=== PATIENT | female | born 1965 | race Caucasian/White ===

== ENCOUNTER 2019-06-08 20:04 | Emergency (ER) | payer OTHER ==
[2019-06-08] MEDS ORDERED: KETOROLAC TROMETHAMINE 60 MG/2 ML SDV IM ONE (20:53)
[2019-06-08] MEDS ORDERED: DEXAMETHASONE SOD PHOS INJ 10 MG/1 ML VIAL IM ONE (20:53)
--- NOTE | 2019-06-08 20:57 | ER Document Report ---
ED Medical Screen (RME) - General Chief Complaint: Back Pain Stated Complaint: RIGHT SIDED FLANK PAIN Time Seen by Provider: 06/08/19 20:46 Notes: Patient is a 53-year-old female who presents emergency department with a chief complaints of low back pain. Patient states that she fell on March 24. Since then she did not seek medical care. Today she went to go use the restroom and when she got up she felt her back go out. Patient states that she was seeing a chiropractor. She had been taking ibuprofen at home, but stopped taking it a few days ago. Exam: Tenderness and tightness to bilateral lower back. Patient will receive a dose of Decadron and Toradol to help with pain relief. I have greeted and performed a rapid initial assessment of this patient. A comprehensive ED assessment and evaluation of the patient, analysis of test results and completion of medical decision making process will be conducted by an additional ED providers. Past Medical History - Social History Frequency of alcohol use: None Drug Abuse: None Physical Exam - Vital signs Vitals: Temp Pulse Resp BP Pulse Ox 98.8 F 69 18 133/73 H 100 06/08/19 20:23 06/08/19 20:23 06/08/19 20:23 06/08/19 20:23 06/08/19 20:23 Course - Vital Signs Vital signs: Temp Pulse Resp BP Pulse Ox 98.8 F 69 18 133/73 H 100 06/08/19 20:23 06/08/19 20:23 06/08/19 20:23 06/08/19 20:23 06/08/19 20:23
[2019-06-08 21:55] LABS: APPEARANCE,URINE CLEAR; BILIRUBIN,URINE NEGATIVE (NEGATIVE); COLOR,URINE YELLOW; GLUCOSE, URINE NEGATIVE (NEGATIVE); KETONES,URINE NEGATIVE (NEGATIVE); LEUKOCYTE ESTERASE,URINE NEGATIVE (NEGATIVE); NITRITE,URINE NEGATIVE (NEGATIVE); PROTEIN,URINE NEGATIVE (NEGATIVE); URINE SPECIFIC GRAVITY 1.017; UROBILINOGEN,URINE NEGATIVE mg/dL (<2.0)
[2019-06-08] MEDS ORDERED: ONDANSETRON HCL INJ/PF 4 MG/2 ML SDV IV ONE (22:42)
[2019-06-08] MEDS ORDERED: NORMAL SALINE 1000 ML 1,000 ML IV ONE (22:42)
[2019-06-08] MEDS ORDERED: MORPHINE SULFATE 10 MG/ML INJ IV ONE (22:43)
[2019-06-08 23:19] LABS: ABSOLUTE BASOPHILS # (AUTO) 0.1 10^3/uL (0.0-0.2); ABSOLUTE LYMPHOCYTES (AUTO) 1.6 10^3/uL (0.5-4.7); ABSOLUTE MONOCYTES (AUTO) 0.5 10^3/uL (0.1-1.4); ABSOLUTE NEUT (AUTO) 7.4 10^3/uL (1.7-8.2); BASOPHILS % (AUTO) 0.7 % (0-2); EOSINOPHILS % (AUTO) 0.3 % (0-6); HEMATOCRIT 37.7 % (36.0-47.0); HEMOGLOBIN 12.9 g/dL (12.0-15.5); LYMPHOCYTES % (AUTO) 16.7 % (13-45); MEAN CORPUSCULAR HEMOGLOBIN 29.3 pg (27.0-33.4); MEAN CORPUSCULAR HGB CONC 34.3 g/dL (32.0-36.0); MEAN CORPUSCULAR VOLUME 85 fl (80-97); MONOCYTES % (AUTO) 4.7 % (3-13); PLATELET COUNT 313 10^3/uL (150-450); RED BLOOD COUNT 4.42 10^6/uL (3.72-5.28); RED CELL DISTRIBUTION WIDTH 13.1 % (11.5-14.0); SEGMENTED NEUTROPHILS % (AUTO) 77.6 % (42-78); TOTAL CELLS COUNTED % (AUTO) 100 %; WHITE BLOOD COUNT 9.5 10^3/uL (4.0-10.5)
[2019-06-08 23:31] LABS: ALBUMIN 4.3 g/dL (3.5-5.0); ALKALINE PHOSPHATASE 95 U/L (38-126); ANION GAP 9 (5-19); ASPARTATE AMINO TRANSFERASE 26 U/L (14-36); BILIRUBIN,DIRECT 0.1 mg/dL (0.0-0.4); BILIRUBIN,TOTAL 0.4 mg/dL (0.2-1.3); BLOOD UREA NITROGEN 26 mg/dL (7-20); CALCIUM 10.1 mg/dL (8.4-10.2); CARBON DIOXIDE 30 mmol/L (22-30); CHLORIDE 100 mmol/L (98-107); GLUCOSE 96 mg/dL (75-110); POTASSIUM 4.1 mmol/L (3.6-5.0); TOTAL PROTEIN 7.2 g/dL (6.3-8.2)
--- NOTE | 2019-06-08 23:42 | RADIOLOGY REPORT (SQ) ---
EXAM DESCRIPTION: CLINICAL HISTORY: 53 years Female right flank pain COMPARISON: None. TECHNIQUE: Contiguous axial images obtained through the abdomen and pelvis without IV contrast. Reformatted images obtained. This exam was performed according to our department optimization program which includes automated exposure control, adjustment of the mA and/or kv according to patient size and/or use of iterative reconstruction technique. FINDINGS: The lung bases are clear. The liver appears unremarkable. The spleen and pancreas appear unremarkable. No adrenal masses. The kidneys appear unremarkable. No hydronephrosis or definite ureteral calculi. The gallbladder is contracted. No aneurysmal dilatation of the aorta. No bowel obstruction. Diverticulosis without diverticulitis. Unremarkable appendix. No free fluid. Nonspecific subcutaneous density over the left gluteal region. In the setting of trauma this could represent an area of contusion. Recommend clinical correlation IMPRESSION: No evidence of acute process to explain the patient's right flank pain Area of soft tissue stranding over the left buttock which could reflect contusion. Recommend clinical correlation
--- NOTE | 2019-06-09 00:08 | ER Document Report ---
ED General - General Chief Complaint: Back Pain Stated Complaint: RIGHT SIDED FLANK PAIN Time Seen by Provider: 06/08/19 20:46 Primary Care Provider: JONE KATZ MD [ASSOCIATE] - Follow up in 3-5 days Notes: Patient is a 53-year-old female that presents to the emergency department for chief complaint of right low back pain. Patient states that shortly prior to ED arrival she was standing up from going to the bathroom and felt a sharp pain in her right side and right back. She states she had an injury to her back in February of this year and on and off its been bothering her but not to this extent. She denies having any numbness, weakness or tingling in either of her lower extremities. Denies any bowel or bladder incontinence, denies any urinary retention, saddle anesthesias or paresthesias. Denies prior history of kidney stones she has not noticed any urinary symptoms such as dysuria hematuria eithe r. She currently rates her pain as a 9 out of 10 particular worse with changes in position. Describes as an aching constant sensation. Past Medical History: Denies chronic medical conditions Past Surgical History: Denies recent or pertinent surgical history Social History: Denies current tobacco, alcohol or drug use. Family History: Reviewed and noncontributory for presenting illness Allergies: Reviewed, see documented allergy list. REVIEW OF SYSTEMS: Other than noted above, the 12 point review of systems was reviewed with the patient and were negative, all pertinent findings are included in the HPI. PHYSICAL EXAMINATION: Vital signs reviewed, nursing noted reviewed. GENERAL: Well-appearing, well-nourished and in no acute distress. HEAD: Atraumatic, normocephalic. EYES: Eyes appear normal, extraocular movements intact, sclera anicteric, conjunctiva are normal. ENT: nares patent, oropharynx clear without exudates. Moist mucous membranes. NECK: Normal range of motion, supple without lymphadenopathy LUNGS: Breath sounds clear to auscultation bilaterally and equal. No wheezes rales or rhonchi. HEART: Regular rate and rhythm without murmurs ABDOMEN: Soft, nontender, normoactive bowel sounds. No rebound, guarding, or rigidity. No masses appreciated. EXTREMITIES: Nontender, good range of motion, no pitting or edema. Back: There is right CVA tenderness to palpation, and lower paraspinal tenderness as well, pain with range of motion of the lumbar spine. Negative straight leg raising. NEUROLOGICAL: No focal neurological deficits. Moves all extremities spontaneo usly Motor and sensory grossly intact on exam. Patient's muscular motor strength is +5/5 distally in all extremities, particularly with plantarflexion, dorsiflexion and extension of the hallucis longus tendon. PSYCH: Normal mood, normal affect. SKIN: Warm, Dry, normal turgor, no rashes or lesions noted on exposed skin - Related Data Allergies/Adverse Reactions: No Known Allergies Allergy (Unverified 06/08/19 22:13) Past Medical History - Social History Smoking Status: Never Smoker Frequency of alcohol use: None Drug Abuse: None Family History: Reviewed & Not Pertinent Patient has suicidal ideation: No Patient has homicidal ideation: No - Past Medical History Cardiac Medical History: Reports: Hx Hypertension Past Surgical History: Reports: Hx Section - x 2 Physical Exam - Vital signs Vitals: Temp Pulse Resp BP Pulse Ox 98.8 F 69 18 133/73 H 100 06/08/19 20:23 06/08/19 20:23 06/08/19 20:23 06/08/19 20:23 06/08/19 20:23 Course - Re-evaluation Re-evalutation: Patient seen and examined vital signs reviewed. Laboratory data and/or imaging were ordered as appropriate for the patient's presenting symptoms and complaint, with consideration of any critical or life threatening conditions that may be associated with their obtained history and exam as noted above. Patient was treated with IV fluids, morphine and Zofran and given Toradol initially Results were reviewed when available and demonstrated negative CT imaging for kidney stone, as the patient's presentation did demonstrate some hematuria in her UA, and had severe flank pain, however with negative CT, unremarkable blood work, this most likely is muscular skeletal pain without renal colic is possible from recently passed stone. The patient was re-evaluated and was improved Evaluation was most consistent with low back pain, will treat with pain medication, prednisone, muscle relaxers and have her follow-up Results were discussed with the patient at this point, after careful consideration I feel that that patient can be discharged from the emergency department, the patient was educated treatments and reasons to return to the [facility] department based on their presumed diagnosis as noted above, they were advised to followup with a primary care physician in 2-3 days. Patient was agreeable to plan of care. *Note is created using voice recognition software and may contain spelling, syntax or grammatical errors. Laboratory 06/08/19 06/08/19 06/08/19 21:00 23:04 23:04 WBC 9.5 RBC 4.42 Hgb 12.9 Hct 37.7 MCV 85 MCH 29.3 MCHC 34.3 RDW 13.1 Plt Count 313 Lymph % (Auto) 16.7 [place] % (Auto) 4.7 Eos % (Auto) 0.3 Baso % (Auto) 0.7 Absolute Neuts (auto) 7.4 Absolute Lymphs (auto) 1.6 Absolute Monos (auto) 0.5 Absolute Eos (auto) 0.0 Absolute Basos (auto) 0.1 Seg Neutrophils % 77.6 Sodium 138.6 Potassium 4.1 Chloride 100 Carbon Dioxide 30 Anion Gap 9 BUN 26 H Creatinine 1.15 Est GFR ( Amer) 59 L Est GFR (MDRD) Non-Af 49 L Glucose 96 Calcium 10.1 Total Bilirubin 0.4 Direct Bilirubin 0.1 Neonat Total Bilirubin Not Reportable Neonat Direct Bilirubin Not Reportable Neonat Indirect Bili Not Reportable AST 26 ALT 26 Alkaline Phosphatase 95 Total Protein 7.2 Albumin 4.3 Urine Color YELLOW Urine Appearance CLEAR Urine pH 6.0 Ur Specific [place] 1.017 Urine Protein NEGATIVE Urine Glucose (UA) NEGATIVE Urine Ketones NEGATIVE Urine Blood SMALL H Urine Nitrite NEGATIVE Urine Bilirubin NEGATIVE Urine Urobilinogen NEGATIVE Ur Leukocyte Esterase NEGATIVE Urine WBC (Auto) 1 Urine RBC (Auto) 3 U Hyaline Cast (Auto) 1 Squamous Epi Cells Auto 1 Urine Mucus (Auto) RARE Urine Ascorbic Acid NEGATIVE Abdomen/Pelvis CT 06/08/19 22:42 IMPRESSION: No evidence of acute process to explain the patient's right flank pain Area of soft tissue stranding over the left buttock which could reflect contusion. Recommend clinical correlation - Vital Signs Vital signs: Temp Pulse Resp BP Pulse Ox 97.9 F 68 16 127/66 H 100 06/09/19 00:32 06/09/19 00:32 06/09/19 00:32 06/09/19 00:32 06/09/19 00:32 - Laboratory Result Diagrams: 06/08/19 23:04 06/08/19 23:04 Laboratory results interpreted by me: 06/08/19 06/08/19 21:00 23:04 BUN 26 H Est GFR ( Amer) 59 L Est GFR (MDRD) Non-Af 49 L Urine Blood SMALL H Discharge - Discharge Clinical Impression: Back pain Qualifiers: Back pain location: low back pain Chronicity: acute Back pain laterality: right Sciatica presence: without sciatica Qualified Code(s): M54.5 - Low back pain Condition: Stable Disposition: HOME, SELF-CARE Instructions: Low Back Pain ([facility]) Additional Instructions: Please follow-up with your primary care, you can also follow-up with the [facility] surgeon referred to on your paperwork, please take all medications as prescribed, in addition you should use warm or cool compresses for 20 minutes on 20 minutes off to help with your pain. Prescriptions: Hydrocodone/Acetaminophen [Arion 5-325 mg Tablet] 1 tab PO Q6H PRN #15 tablet PRN Reason: back pain Prednisone 40 mg PO DAILY #20 tablet Methocarbamol [Robaxin 750 mg Tablet] 750 mg PO TID PRN #30 tablet PRN Reason: back pain Forms: Return to Work Referrals: JONE KATZ MD [ASSOCIATE] - Follow up in 3-5 days
[2019-06-09 00:38] VITALS: BP 127/66
[2019-06-09] MEDS ORDERED: HYDROCODONE/ACETAMINOPHEN 5-325 MG (6 TAB/ER DISP) PO PRN (00:45)
== END 2019-06-09 00:38 | disposition home or self-care (01) ==
LOC: ER 20:04
DX: M54.5 Low back pain (principal); M54.9 Dorsalgia, unspecified; I10 Essential (primary) hypertension
CPT/HCPCS: 36415; 85025; 80053; 81001; 74176; J1885; J2270; J2405; J7030; J1100